=== PATIENT | male | born 1975 | race Caucasian/White ===

== ENCOUNTER 2017-07-14 10:09 | Emergency (ER) | payer MEDICAID, SELFPAY ==
[2017-07-14 10:23] VITALS: BP 134/88; PULSE 95; RESP 18; O2SAT 99; BMI 26.3
--- NOTE | 2017-07-14 10:32 | XR_ITS ---
XR ankle RT 2V HISTORY: ITS.REASON: PAIN ORDERING PHYSICIAN: Nile Guerrero MD PATIENT AGE: 42 years COMPARISON: None FINDINGS: No fracture or dislocation. No lytic or blastic change. There is normal mineralization.. The joint spaces are well-preserved. No significant degenerative/arthritic changes. No erosive changes evident. IMPRESSION: Negative ankle, no acute finding
--- NOTE | 2017-07-14 10:44 | HMH.EDGENADL ---
ED Disposition Clinical Impression: Tendinitis of ankle Disposition: Home, Self-Care Condition on Discharge: Good Instructions: DI for Tendinitis, How to Use Crutches Additional Instructions: Crutches, ice 20 minutes times a day, elevation until Wednesday. Additional instructions for EXTREMITY PAIN: See your physician as soon as possible for further evaluation. Return to an emergency department immediately if you have uncontrollable pain, fever, loss of feeling or inability to move your injured extremity. Prescriptions: Indomethacin [Indocin 25mg capsule] 25 mg PO TID #15 cap Referrals: Jyothi Mederos [Primary Care Provider] - - Critical Care Critical Care Time: No Attestation: On 07/14/17, the high probability of a clinically significant, sudden or life threatening deterioration of the following system(s) required my full and direct attention, intervention and personal management. The time I documented below is in addition to time spent performing reported procedures but includes the following listed in this critical care notation. Medical Decision Making Vital Signs: 07/14/17 10:23 Pulse Rate [Right Brachial] 95 H Respiratory Rate 18 Blood Pressure [Right Arm] 134/88 Blood Pressure Mean [Right Arm] 103 Blood Pressure Source [Right Arm] Automatic Cuff Blood Pressure Position [Right Arm] Sitting 02 Sat by Pulse Oximetry 99 Oxygen Delivery Method Room Air Orders (Tests/Meds): ORDERS Category Date Time Status Ankle XR - Left 2 Views [XR ankle LT 2V] Stat Exams 07/14/17 10:32 Ordered - Radiology Data #1 Image(s): Ankle Image Reviewed: Yes I reviewed the patient's radiology results Preliminary Findings: Normal/NAD - John Inquiry Pt receiving controlled substance: No John was queried for this patient: Yes Reference #:: [id number] Comment: 0 rxs. General Adult HPI - General Chief complaint: PAIN Stated complaint: right foot pain no AO Mode of Arrival: Family Vehicle Limitations: No Limitations Description of Symptoms (Recalled from ER Triage Doc. by RN): PT STATES THAT THE COUPLE DAYS PT HAS BEEN HAVING INCREASING PAIN IN HIS LEFT ANKLE. NO INJURY - History of Present Illness HPI narrative: Patient complains of a 2 day history of sharp pain on his medial right ankle posterior to his medial malleolus. When he stands it shoots of pain up into the Achilles tendon area as well. There is a little bit of swelling behind his right medial malleolus, no other edema, no heat or redness. He does not recall any injury or unusual activity. He does have a prior history of gout, one episode of an acute gouty arthritis in his toe several years ago. No fever. No calf pain. No recent travel, no recent surgeries or hospitalizations. No history of thromboembolic disease. - Related Data Home Medications Medication Instructions Recorded Confirmed Omeprazole Magnesium [Prilosec Otc 20 mg PO DAILY 07/14/17 07/14/17 20mg Tab] Previous Rx's Medication Instructions Recorded Indomethacin [Indocin 25mg capsule] 25 mg PO TID #15 cap 07/14/17 Allergies Allergy/AdvReac Type Severity Reaction Status Date / Time Sulfa (Sulfonamide Allergy Verified 07/14/17 10:30 Antibiotics) [facility] History I have reviewed the patient's past medical history: Yes - *Social History Smoking Status: Never smoker Alcohol Intake: never - Psychiatric History Expresses thoughts of harming self/others: None Suicide Plan Description: No Plan ROS Obtained: Yes All systems reviewed & no additional complaints - Constitutional Constitutional: Denies fever(s) - Musculoskeletal Musculoskeletal: Reports as per HPI Physical Exam - General General appearance: alert, in no apparent distress - Respiratory Respiratory exam: Absent: respiratory distress - Cardiovascular Cardiovascular exam: Present: regular rate - Neurological Exam Neurological exam: Present: alert, oriented X3 - O
[2017-07-14 11:20] VITALS: BP 140/84; PULSE 80; O2SAT 97
== END 2017-07-14 11:26 | disposition home or self-care (01) ==
PROVIDERS: Emergency Provider Emergency Medicine; PCP Family Medicine
DX: M77.51 Other enthesopathy of right foot and ankle (principal); K21.9 Gastro-esophageal reflux disease without esophagitis; Z88.2 Allergy status to sulfonamides
CPT/HCPCS: 73600; 96372; 99282

== ENCOUNTER → 2020-06-12 16:39 | Outpatient (CLI) | payer MEDICAID, SELFPAY ==
--- NOTE | 2020-06-12 16:43 | MR_ITS ---
PROCEDURE: MR ANKLE LT WO CON CLINICAL INDICATION: CALCANEAL STRESS FRACTURE Pt c/o swelling in arch of foot x 9 months with no hx of injury. Order states hx of calcaneal stress fx. COMPARISON: CR [id number] XR ankle RT 2V from 07/14/2017 TECHNIQUE: Routine multiplanar multi echo sequences are performed without gadolinium enhancement. FINDINGS: There is mild generalized soft tissue swelling about the medial aspect of the ankle. The distal tibial fibular syndesmosis appears intact. The anterior tibiofibular ligament is thinned with questionable discontinuity medially suggesting a partial tear versus sprain. The posterior tibial fibular ligament appears intact. Small amount fluid is present at the anterior tibial fibular region and posterior talocalcaneal area. the deltoid ligament appears intact. The ATFL and PT FL appears intact. Calcaneal fibular ligament also appears intact. There is an area of increased T2 signal within the subchondral region of the calcaneus just anterior to the posterior subtalar joint. This measures approximately the 9 mm. Smaller subchondral areas of increased T2 signal are present just anterior to this region at the sinus tarsi region.. Tissues at the sinus tarsi are unremarkable with the exception of a small amount fluid long the anterior aspect of the posterior subtalar joint. The remaining aspect of the calcaneus has an unremarkable appearance. The There is slight increased T2 signal involving the peroneus longus and brevis at the retro malleolar groove. The remaining tendons and ligaments have an unremarkable appearance. Achilles tendon is unremarkable. Small amount fluid is present posterior to the talocalcaneal region with some minimal extension into the soft tissues suggesting bursitis. IMPRESSION: 1. Possible tear of the anterior tibiofibular ligament versus sprain with a small amount fluid in this region. 2. Slight increased T2 signal of the peroneus longus and brevis tendons at the retro malleolar groove suggesting tendinopathy/strain versus partial tear. 3. Small areas of increased T2 signal in the subchondral region of the calcaneus at the sinus tarsi which may be related to developing subchondral cysts versus underlying inflammation. No definite calcaneal stress fracture. 4. Fluid posterior to the talocalcaneal region consistent with bursitis. Dictated by: Rashad Simpson MD 06/17/2020 08:15 Rashad Simpson MD in [place] 06/17/2020 08:15
== END ==
PROVIDERS: PCP Family Medicine; Visit Provider Podiatrist Foot & Ankle Surgery
DX: M84.372A Stress fracture, left ankle, initial encounter for fracture (principal); M72.2 Plantar fascial fibromatosis
CPT/HCPCS: 73721

== ENCOUNTER 2020-11-05 19:35 | Emergency (ER) | payer MEDICAID, SELFPAY ==
[2020-11-05 19:56] VITALS: BP 137/98; PULSE 116; RESP 16; TEMP 37.5; O2SAT 97; BMI 29.6
[2020-11-05 20:06] VITALS: BP 137/94; PULSE 112; RESP 16; O2SAT 96
--- NOTE | 2020-11-05 20:07 | CT_ITS ---
PROCEDURE INFORMATION: Exam: CT Abdomen And Pelvis With Contrast Exam date and time: 11/05/2020 8:07 PM Age: 45 years old Clinical indication: Nausea and vomiting; Prior surgery; Surgery date: 6+ months; Surgery type: Gb appendix; Additional info: Abd pain w/ nausea vomiting TECHNIQUE: Imaging protocol: Computed tomography of the abdomen and pelvis with contrast. Radiation optimization: All CT scans at this facility use at least one of these dose optimization techniques: automated exposure control; mA and/or kV adjustment per patient size (includes targeted exams where dose is matched to clinical indication); or iterative reconstruction. Contrast material: ISOVUE; Contrast volume: 75 ml; Contrast route: IV; COMPARISON: No relevant prior studies available. FINDINGS: Liver: There is a diffuse decrease in hepatic parenchymal density consistent with fatty infiltration. 5 cm liver cyst. Gallbladder and bile ducts: Cholecystectomy. Pancreas: Normal. No ductal dilation. Spleen: Multiple calcified splenic granulomata. Adrenal glands: Normal. No mass. Kidneys and ureters: Normal. No hydronephrosis. Stomach and bowel: Fluid fluid old nondilated small bowel loops are seen in the mid abdomen. Appendix: No evidence of appendicitis. Intraperitoneal space: Unremarkable. No free air. No significant fluid collection. Vasculature: Unremarkable. No abdominal aortic aneurysm. Lymph nodes: Unremarkable. No enlarged lymph nodes. Urinary bladder: Unremarkable as visualized. Reproductive: Unremarkable as visualized. Bones/joints: Unremarkable. No acute fracture. Soft tissues: Unremarkable. IMPRESSION: 1. Possible localized small bowel ileus. No evidence of SBO. 2. Fatty liver.
--- NOTE | 2020-11-05 20:17 | HMH.EDNVD ---
ED Disposition Clinical Impression: Ileus UTI (urinary tract infection) Qualifiers: Urinary tract infection type: site unspecified Hematuria presence: without hematuria Qualified Code(s): N39.0 - Urinary tract infection, site not specified Disposition: Home, Self-Care Condition on Discharge: Good Instructions: DI for Acute Abdominal Pain Additional Instructions: call pcp for culture results Prescriptions: levoFLOXacin [Levaquin 500mg tab] 500 mg PO DAILY #7 tab Prescription Printed Referrals: Darvin Hughes [Primary Care Provider] - - Critical Care Critical Care Time: No Attestation: On 11/05/20, the high probability of a clinically significant, sudden or life threatening deterioration of the following system(s) required my full and direct attention, intervention and personal management. The time I documented below is in addition to time spent performing reported procedures but includes the following listed in this critical care notation. Medical Decision Making - Medical Records Medical records reviewed: Yes: I reviewed the patient's medical records. - John Inquiry Pt receiving controlled substance: No Vital Signs: 11/05/20 19:56 11/05/20 20:06 Temperature 99.5 F Temperature Source Oral Pulse Rate 112 H Pulse Rate [Right] 116 H Respiratory Rate 16 16 Blood Pressure 137/94 H Blood Pressure [Right Arm] 137/98 H Blood Pressure Mean [Right Arm] 111 Blood Pressure Source [Right Arm] Automatic Cuff Blood Pressure Position [Right Arm] Supine 02 Sat by Pulse Oximetry 97 96 Oxygen Delivery Method Room Air - Lab Data Lab results reviewed: Yes: I reviewed the patient's lab results. Lab Results 11/05/20 20:15: WBC 7.6, RBC 5.17, Hgb 15.7, Hct 44.7, MCV 86.4, MCH 30.3, MCHC 35.1, RDW 13.5, Plt Count 169, MPV 7.4, Neut % (Auto) 84.8 H, Lymph % (Auto) 10.2, [place] % (Auto) 4.3, Eos % (Auto) 0.6, Baso % (Auto) 0.1, Neut # (Auto) 6.5, Lymph # (Auto) 0.8, [place] # (Auto) 0.3, Eos # (Auto) 0.1, Baso # (Auto) 0.0, ESR 10 11/05/20 20:15: Sodium 140, Potassium 3.2 L, Chloride 107, Carbon Dioxide 23, Anion Gap 13.2, BUN 13, Creatinine 1.10, Estimated Creat Clear 137, Estimated GFR 73, Est GFR ( Amer) 88, Glucose 113 H, Calcium 8.6, Total Bilirubin 1.2, AST 28, ALT 23, Alkaline Phosphatase 61, C-Reactive Protein 50.4 H, Total Protein 6.6, Albumin 4.3, Globulin 2.3, Albumin/Globulin Ratio 1.9 H, Amylase 45, Lipase 32, Procalcitonin 0.330 11/05/20 20:30: Chlamy pneumoniae PCR Not detected, Adenovirus (PCR) Not detected, B. pertussis DNA (PCR) Not detected, Coronavirus OC43 (PCR) Not detected, Coronavirus HKU1 (PCR) Not detected, Coronavirus 229E (PCR) Not detected, SARS-CoV-2 (PCR) Not detected, Coronavirus NL63 (PCR) Not detected, Human Metapneumovir PCR Not detected, Influenza A (H1) PCR Not detected, Influ A (H1N1/09) PCR Not detected, Influenza A (H3) PCR Not detected, Influenza Type A (PCR) Not detected, Influenza Type B (PCR) Not detected, M. pneumoniae (PCR) Not detected, Parainfluenza 1 (PCR) Not detected, Parainfluenza 2 (PCR) Not detected, Parainfluenza 3 (PCR) Not detected, Parainfluenza 4 (PCR) Not detected, RSV (PCR) Not detected, Entero/Rhino (PCR) Not detected 11/05/20 20:30: Urine Color Yellow, Urine Appearance Clear, Urine pH 5.5, Ur Specific Frost >= 1.030, Urine Protein Trace, Urine Glucose (UA) Negative, Urine Ketones 1+, Urine Blood Negative, Urine Nitrate Negative, Urine Bilirubin Negative, Urine Urobilinogen 0.2, Ur Leukocyte Esterase Negative, Urine RBC None, Urine WBC 5-10, Ur Squamous Epith Cells 10-20, Urine Bacteria 3+, Urine Mucus 3+ Result diagrams: 11/05/20 20:15 11/05/20 20:15 Orders (Tests/Meds): ED MEDICATIONS Generic Name Dose Route Start Last Admin Trade Name Freq PRN Reason Stop Dose Admin Sodium Chloride 1,000 mls @ 999 mls/hr 11/05/20 20:15 11/05/20 20:22 Sod Chlor 0.9% 1000ml Bag IV 11/05/20 21:15 999 mls/hr .Q1H1M ADDI Administration Ceftriaxone Sod
[2020-11-05 20:31] LABS: Basophils % 0.1 % (0.1-2.0); Eosinophils # 0.1 K/mm3 (0.0-0.4); Eosinophils % 0.6 % (0.1-12.0); Hematocrit 44.7 % (42.0-52.0); Hemoglobin 15.7 g/dL (14.1-18.0); Lymphocytes # 0.8 K/mm3 (0.7-4.5); Lymphocytes % 10.2 % (10-50); Mean Corpuscular HGB Conc 35.1 g/dL (31.8-35.4); Mean Corpuscular Hemoglobin 30.3 pg (27.0-31.2); Mean Corpuscular Volume 86.4 fl (80-94); Mean Platelet Volume 7.4 fl (7.4-10.4); Monocytes # 0.3 K/mm3 (0.1-1.0); Monocytes % 4.3 % (1.7-9.3); Neutrophils # 6.5 K/mm3 (1.8-7.8); Neutrophils % 84.8 % (37.0-80.0); Platelet Count 169 K/mm3 (142-424); Red Blood Count 5.17 M/mm3 (4.60-6.20); Red Cell Distribution Width 13.5 % (11.5-17.5); White Blood Count 7.6 K/mm3 (4.8-10.8)
[2020-11-05 20:33] LABS: Chloride 107 mmol/L (98-107); Potassium 3.2 mmoL/L (3.5-5.1); Sodium 140 mmol/L (136-145)
[2020-11-05 20:35] LABS: Amylase 45 U/L (30-110)
[2020-11-05 20:36] LABS: Alanine Aminotransferase 23 U/L (12-78); Albumin Level 4.3 g/dl (3.5-5.0); Albumin/Globulin Ratio 1.9 (1.1-1.8); Alkaline Phosphatase 61 U/L (38-126); Anion Gap 13.2 mEq/L (5-15); Aspartate Amino Transferase 28 U/L (17-59); Bilirubin,Total 1.2 mg/dl (0.2-1.3); Blood Urea Nitrogen 13 mg/dl (9-20); Calcium 8.6 mg/dl (8.4-10.2); Carbon Dioxide 23 mmol/L (22.0-30.0); Creatinine Clearance Estimated 137 mL/min (50-200); Estimated Glomerular Filt Rate 73 ml/min (>60); GFR (African American) 88 ML/MIN (>60); Globulin 2.3 g/dL (1.3-3.2); Glucose 113 mg/dl (74-100); Lipase 32 U/L (23-300); Total Protein,Serum 6.6 g/dl (6.3-8.2)
--- NOTE | 2020-11-05 20:37 | PC.NURSE ---
patient to CT
[2020-11-05 20:40] LABS: Microscopic, Urine URINE MICROSCOPIC (MICROSCOPIC)
[2020-11-05 20:41] LABS: C-Reactive Protein 50.4 mg/L (0-4)
[2020-11-05 20:42] LABS: Appearance,Urine CLEAR (Clear); Blood, Urine Negative (Negative); Color,Urine YELLOW (Yellow); Glucose,Urine (UA) Negative (Negative); Ketones,Urine 1+ (Negative); Leukocyte Esterase,Urine Negative (Negative); Nitrate,Urine Negative (Negative); PH,Urine 5.5 (5.0-8.5); Protein,Urine TRACE (Negative); Specific Gravity, Urine >= 1.030 (1.005-1.030); Urobilinogen,Urine 0.2 EU/dl (0.2)
[2020-11-05 20:44] LABS: Adenovirus,PCR Not Detected (NotDetected); Bordetella Pertussis Not Detected (NotDetected); Chlamydophila Pneumoniae, PCR Not Detected (NotDetected); Coronavirus 19, PCR Not Detected (NotDetected); Coronavirus 229E Not Detected (NotDetected); Coronavirus NL63 Not Detected (NotDetected); Coronavirus OC43 Not Detected (NotDetected); Coronovirus HKU1,PCR Not Detected (NotDetected); Human Metapneumovirus Not Detected (NotDetected); Influenza A, PCR Not Detected (NotDetected); Influenza AH1, 2009 Not Detected (NotDetected); Influenza AH1, PCR Not Detected (NotDetected); Influenza AH3,PCR Not Detected (NotDetected); Influenza B, PCR Not Detected (NotDetected); Mycoplasma Pneumoniae, PCR Not Detected (NotDetected); Parainfluenza 1, PCR Not Detected (NotDetected); Parainfluenza 2, PCR Not Detected (NotDetected); Parainfluenza 3, PCR Not Detected (NotDetected); Parainfluenza 4, PCR Not Detected (NotDetected); Respiratory Syncytial Virus Not Detected (NotDetected); Rhinovirus/Enterovirus Not Detected (NotDetected)
[2020-11-05 20:53] LABS: Erythrocyte Sedimentation Rate 10 mm/hr (0-15)
[2020-11-05 20:57] LABS: Bilirubin,Urine Negative (Negative)
[2020-11-05 20:59] LABS: Bacteria,Urine 3+ /lpf; Mucus,Urine 3+ /lpf
[2020-11-05 22:56] VITALS: BP 132/78; PULSE 92; RESP 16; TEMP 37.5; O2SAT 99
== END 2020-11-05 23:00 | disposition home or self-care (01) ==
PROVIDERS: Emergency Provider Emergency Medicine; PCP Family Medicine
DX: K56.7 Ileus, unspecified (principal); N30.00 Acute cystitis without hematuria; Z20.822 Contact with and (suspected) exposure to COVID-19; E87.6 Hypokalemia
CPT/HCPCS: 74177; 80053; 81001; 82150; 83690; 84145; 85025; 85651; 86140; 87086; 87581; 87633; 87798; 96365; 96366; 96375; 99283; J2405; Q9967

== ENCOUNTER 2024-08-10 13:10 | Outpatient (CLI) | payer MEDICAID, SELFPAY ==
--- NOTE | 2024-08-10 13:14 | XR_ITS ---
FINAL REPORT CLINICAL HISTORY: cough/congestion FINDINGS: PA and lateral views of the chest are obtained. There is no prior exam for comparison. The cardiac and mediastinal silhouettes are within normal limits. The lungs are clear. There is no pleural effusion, pneumothorax, or acute osseous abnormality. IMPRESSION: No radiographic evidence of acute cardiac or pulmonary disease. Reviewed, Interpreted and Dictated by Diane Gordon MD Transcribed by Hilda Singh Authenticated and . [facility]
== END 2024-08-10 23:59 | disposition home or self-care (01) ==
LOC: RAD 13:11
PROVIDERS: PCP Family Medicine; Visit Provider Nurse Practitioner
DX: R05.9 Cough, unspecified (principal)
CPT/HCPCS: 71046

== ENCOUNTER 2024-10-27 12:43 | Outpatient (RCR) | payer MEDICAID, SELFPAY | END 2024-10-27 23:59 | disposition home or self-care (01) | LOC: PT 12:43 | PROVIDERS: PCP Family Medicine; Visit Provider Family Medicine | DX: G89.29 Other chronic pain (principal); M54.50 Low back pain, unspecified; M25.551 Pain in right hip; M25.552 Pain in left hip | CPT/HCPCS: 97163 ==